=== PATIENT | male | born 1980 | race Caucasian/White ===

== ENCOUNTER 2019-07-25 08:54 | Emergency (ER) | payer SELFPAY ==
--- NOTE | ~2019-07-25 | XR_ITS ---
EXAMINATION: XR chest 1V portable 07/25/2019 09:20 INDICATION: Chest tightness PROCEDURE: AP portable chest COMPARISON: No prior studies for comparison. FINDINGS: The lungs are clear. The cardiomediastinal silhouette is within normal limits. There are no pleural effusions. There is no pneumothorax suspected. IMPRESSION: 1: NO ACUTE CARDIOPULMONARY DISEASE. Reviewed, dictated and finalized at location A.
[2019-07-25 09:00] VITALS: BP 141/85; PULSE 73; RESP 20; TEMP 37.1; O2SAT 100
[2019-07-25 09:02] VITALS: PULSE 73
--- NOTE | 2019-07-25 09:05 | ECG_ITS ---
Measurements Intervals [place] Rate: 79 P: 19 NM: 142 QRS: 35 QRSD: 86 T: 51 QT: 371 QTc: 426 Interpretive Statements SINUS RHYTHM BASELINE ARTIFACT- AVR, AVL, AVF, V1-V3 BORDERLINE ECG Electronically Signed On 07-26-2019 7:37:19 CDT by Nicolas Holliday D.O.
--- NOTE | 2019-07-25 09:11 | ED.CHESTPAIN ---
HPI - Chest Pain General Chief Complaint: Chest Pain Stated Complaint: Chest Pain Source: patient Mode of arrival: ambulatory Limitations: no limitations History of Present Illness HPI narrative: Upper midsternal chest tightness, onset 2 days ago, not going away. No Pain - does not give it a ranking. It's assoc. with burning in the left shoulder extending to the mid- forearm as well as burning extending from the left thigh to the mid calf, both rated 9/10. He has been feeling restless, had trouble sleeping, loss of appetite, intermittent nausea, burping and heartburn not relieved with Rolaids. He has no radiation into the neck or back. He denies diaphoresis, SOB. He attributes his symptoms to anxiety. He went to the of a friend similar age yesterday who about 3 weeks ago from a heart attack. Since his Jett has been experiencing these symptoms which got worses 2 days ago when he arrived at this home. He also attributes part of his symptoms to being at home and dealing with family members. He has had similar symptoms in the past with burning in his left arm just not as intense as today. This last occurred about 6 months ago. He was given shot lorazepam at the [facility] with resolution of his symptoms. He has no history of coronary artery disease, hyperlipidemia, diabetes, hypertension or obesity. There is no family history of the same. He is unaware of illnesses of his 3 siblings or his parents. Eating, taking a deep breath, movement, and activities do not affect his symptoms. He has a history of anxiety, PTSD, GERD and depression. He has felt more depressed since the of his friend. He has clonazepam 0.5 mg which he can take twice daily for anxiety; he has not taken it for more than a week - does not feel like it really helps. He has been on SSRIs, many different ones - they make him worse. He smokes way less than 1/2 ppd. Risk Factors Coronary artery disease risk factors: smoking history Related Data Home Medications Medication Instructions Recorded Confirmed No Home Medications 07/25/19 07/25/19 Allergies Allergy/AdvReac Type Severity Reaction Status Date / Time No Known Allergies Allergy Verified 07/25/19 09:23 Review of Systems Constitutional: Constitutional: Denies chills and Denies fever(s) Cardiovascular: Cardiovascular: Reports no additional cardiovascular complaints Respiratory: Respiratory: Denies cough, Denies dyspnea and Denies wheezing Gastrointestinal: Gastrointestinal: Denies abdominal pain and Denies diarrhea Musculoskeletal: Musculoskeletal: Reports no additional musculoskeletal complaints Integumentary/Breasts: Comments: No rash Neurologic: Denies headache(s) Psychiatric: Psychiatric: Reports no additional psychiatric complaints Hematologic/Lymphatic: Hematologic/Lymphatic: Denies easy bleeding PMFSH Past Medical History Medical History (Updated 07/25/19 @ 10:54 by Rohith Becker MD) Depression Generalized anxiety disorder GERD (gastroesophageal reflux disease) IBS (irritable bowel syndrome) PTSD (post-traumatic stress disorder) resulting in 70% disability Social History Social History (Updated 07/25/19 @ 10:55 by Rohith Becker MD) Social History: 80% disability. Lives in [place], [place]. 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 Smoking status: Current some day smoker Tobacco type: cigarettes Drinks per week: 4 Other substance usage details: denies marijuana and recreational drug use Exam Const: Orientation/consciousness: patient oriented x3 Neck: Neck: no lymphadenopathy Chest: Chest palpation & inspection: normal inspection of the chest and no tenderness Resp: Effort & Inspection: not labored, not tachypneic and no use of accessory muscles Auscultation: clear to auscultation bilaterally, no rales and no wheezes Cardio: Rate: regular rate and tachycardic Rhythm: regular rhythm GI: Inspection:
[2019-07-25 09:24] LABS: Hematocrit 46.2 % (40.0-54.0); Hemoglobin 15.7 g/dL (14.0-18.0); Mean Corpuscular Hemoglobin 31.4 pg (27.0-31.0); Mean Corpuscular Volume 92.4 fL (78.0-102.0); Mean Platelet Volume 10.1 fl (8.7-11.0); Platelet Count Result 181 K/mm3 (150-420); Red Cell Distribution Width 13.7 % (11.6-14.4); White Blood Count 3.7 K/mm3 (4.8-10.8)
[2019-07-25 09:40] LABS: Alanine Aminotransferase 22 U/L (16-63); Albumin Level 4.1 g/dL (3.4-5.0); Alkaline Phosphatase 60 U/L (46-116); Anion Gap 12.9 mmol/L (7-16); Aspartate Amino Transferase 27 U/L (15-37); Bilirubin,Total 0.6 mg/dL (0.00-1.00); Blood Urea Nitrogen 7 mg/dL (7-18); Calcium 8.8 mg/dL (8.5-10.1); Carbon Dioxide 31 mmol/L (21-32); Chloride 104 mmol/L (98-108); Estimated CRCL calculation 103 ml/min; Estimated Glomerular Filt Rate > 60; Glucose 92 mg/dL (70-99); Osmolality Calculated 296 mOsm/kg (285-295); Potassium 3.9 mmol/L (3.5-5.1); Sodium 144 mmol/L (136-145); Total Protein 7.5 g/dL (6.4-8.2)
[2019-07-25] MEDS: ASPIRIN 81 MG CHEWABLE TABLET 324 MG PO (09:45)
[2019-07-25 09:46] LABS: Troponin I < 0.02 ng/mL (0.00-0.056)
[2019-07-25 09:47] LABS: Band Neutrophils Percent 0 % (0-6); Basophils Percent Manual 0 % (0-1); Eosinophils Absolute Manual 0.14 K/mm3 (0.02-0.5); Eosinophils Percent Manual 4 % (1-6); Lymphocytes Absolute Manual 0.92 K/mm3 (1.1-4.5); Lymphocytes Percent Manual 25 % (18-44); Monocytes Absolute Manual 0.25 K/mm3 (0.1-0.90); Monocytes Percent Manual 7 % (3-9); Neutrophils Absolute Manual 2.36 K/mm3 (1.3-6.7); Neutrophils Percent Manual 64 % (46-73); Platelet Estimate Adequate (Adequate); Total Cells Counted 100
[2019-07-25] MEDS: LORAZEPAM INJ 2 MG/ML VIAL 1 MG IV PUSH (09:57)
--- NOTE | 2019-07-25 10:40 | PC.NURSE ---
report to guera denny
[2019-07-25] MEDS: PANTOPRAZOLE 40 MG TABLET PO (10:45)
[2019-07-25 10:46] VITALS: BP 140/94; PULSE 86; O2SAT 97
--- NOTE | 2019-07-26 13:49 | PCCCNOTE ---
[facility]
== END 2019-07-25 10:51 | disposition home or self-care (01) ==
PROVIDERS: Emergency Provider Family Medicine
DX: K21.9 Gastro-esophageal reflux disease without esophagitis (principal); K58.9 Irritable bowel syndrome, unspecified; F43.10 Post-traumatic stress disorder, unspecified; F32.9 Major depressive disorder, single episode, unspecified; F41.1 Generalized anxiety disorder; F17.210 Nicotine dependence, cigarettes, uncomplicated
CPT/HCPCS: 36415; 71045; 80053; 83735; 84484; 85025; 93005; 96374; 99284; A9270; J2060

== ENCOUNTER 2024-10-03 15:49 | Emergency (ER) | payer OTHER, SELFPAY ==
[2024-10-03] VITALS (11 sets, daily range): BP systolic 130–145; BP diastolic 88–104; PULSE 91–112; RESP 18–24; TEMP 36.4–37; O2SAT 92–98
--- NOTE | ~2024-10-03 | XR_ITS ---
EXAMINATION: XR chest 1V portable Exam Date/Time: 10/03/2024 16:30 CDT HISTORY: chest pain Comparison: None. RESULT: Lines, tubes, and devices: None. Lungs and pleura: Low volumes with crowding. Streaky subsegmental left basilar opacities. Cardiomediastinal silhouette: Stable. Other: No acute osseous or upper abdominal finding. IMPRESSION: Low volumes with crowding. Subsegmental left basilar atelectasis/consolidation. Reviewed, dictated and finalized at location K.
--- NOTE | 2024-10-03 15:50 | ECG_ITS ---
Test Date: 2024-10-03 15:55:26 Measurements Intervals [place] Rate: 110 P: 22 CA: 148 QRS: -2 QRSD: 86 T: 17 QT: 332 QTc: 450 Interpretive Statements SINUS TACHYCARDIA BASELINE WANDER- V3-V4 ABNORMAL ECG No previous ECG available for comparison Electronically Signed On 10-03-2024 17:41:22 CDT by Nicolas Holliday D.O.
--- OUTSIDE RECORDS SUMMARY | 2024-10-03 15:52 | XMS_ITS | Clinical Summary ---
Author Organization [facility] Address [address] [place] [address] Care Team Providers Care Truck Bracer Name Role Phone Unknown, Provider Primary Care Provider Unavaila ble Source Comments [facility],non-owned Affiliates and Associated Physician Practices is amultiple site organization consisting of ambulatory clinics and hospital sitesin [place], [place], [place] and [place]. This disclosure is being madepursuant to the Care Everywhere program and may not contain all information available regarding this patient. Last updated 17.[facility] Allergies No known active allergies Medications * Be aware that medications may not be up to date on this document. Alwaysverify current medications with the patient. alprostadil (Young Harris/Prostagla ndin E1) 500 MCG pellet INSERT 1 SUPPOSITORY INTO URETHRA EVERY WEEK NEEDED PRIOR TO SEXUAL ACTIVITY (MAX 6 DOSES/42 DAYS) 2 Active azelastine (Astelin) 0.1 % nasal spray 2 Active bisacodyl EC (Dulcolax) 5 MG tablet 2 (two) tablets 2 Active busPIRone (Buspar) 15 MG tablet 1 (one) tablet 2 Active cetirizine (ZyrTEC) 10 MG tablet 1 (one) tablet 2 Active famotidine (Pepcid) 40 MG tablet 1 (one) tablet 2 Active ketoconazole (Nizoral) 2 % shampoo USE SHAMPOO TO AFFECTED AREA(S) ONCE A DAY (EXTERNAL USE ONLY) (SHAKE WELL) 2 Active LORazepam (Ativan) 1 MG tablet Take 1 (one) tablet by mouth 2 times daily as needed 2 Active pantoprazole EC (Protonix) 40 MG tablet 1 (one) tablet 2 Active simethicone (Mylicon) 80 MG chew tablet 2 (two) tablets 2 Active Social History Tobacco Use Types Packs/Day Years Used Date Smoking Tobacco: Never Smokeless Tobacco: Current Chew Tobacco Cessation:Ready to Q uit: Not Asked; Counseling Given: Not Answered Alcohol Use Standard Drinks/Week Comments Yes 1 (1 standard drink = 0.6 oz pur e alcohol) Sex and Gender Information Value Date Recorded Sex Assigned at Not on file Legal Sex 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 Gender Identity Not on file Sexual Orientation Not on file Last Filed Vital Signs Vital Sign Reading Time Taken Comments Blood Pressure - - Pulse - - Temperature - - Respiratory Rate - - Oxygen Saturation - - Inhaled Oxygen Concentration - - Weight 104.3 kg (230 lb) 03/13/2022 8:06 AM SENIOR PRODUCT DEVELOPMENT SCIENTIST Height 177.8 cm (5' 10) 03/13/2022 8:06 AM SENIOR PRODUCT DEVELOPMENT SCIENTIST Body Mass Index 33 03/13/2022 8:06 AM SENIOR PRODUCT DEVELOPMENT SCIENTIST Plan of Treatment Health Maintenance Due Date Last Done Comments LIPID TESTING 1979 HIV SCREENING 09/26/1994 HEPATITIS C SCREENING 09/22/1997 DTAP/TDAP/TD VACCINES (1 - Tdap) 09/26/1998 HEPATITIS B VACCINE (1 of 3 - 19+ 3-dose series) 09/26/1998 HPV VACCINE (1 - 3-dose SCDM series) 09/26/2006 COVID-19 VACCINE ( season) 2023 DEPRESSION SCREENING 02/25/2024 INFLUENZA VACCINE (#1) 2024 9, 01/11/2015, 01/06/2013, Additional history exists ZOSTER VACCINE (1 of 2) 09/26/2029 HIB VACCINE Aged Out No longer eligi ble based on patient's age to complete this topic MENINGOCOCCAL (Group B) VACCINE SHARED DECISION-MAKING Aged Out No longer eligible based on patient's age to complete this topic MENINGOCOCCAL GROUPS A/C/Y/W VACCINE Aged Out No longer eligible based on patient's age to complete this topic PNEUMOCOCCAL VACCINE Aged Out No long er eligible based on patient's age to complete this topic Insurance [employer] Member Subscriber Plan / Payer ( fective 2008-Present) Name:Jett Hdz Relation to Subscriber:Self Name:Jett Hdz Payer ID:Not on file Group ID:Not on file Type:Con[employer] Access Address: [facility] [id number] [place] [id number] Care Teams Truck Bracer Relationship Specialty Start Date End Date Unknown, Provider PCP - General 03/13/22
--- OUTSIDE RECORDS SUMMARY | 2024-10-03 15:52 | XMS_ITS | Clinical Summary ---
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 Gender Identity Not on file Sexual Orientation Not on file Last Filed Vital Signs Vital Sign Reading Time Taken Comments Blood Pressure 168/105 06/27/2024 3:20 PM CDT Pulse 122 06/27/2024 3:20 PM CDT Temperature 36.6 C (97.8 F) 06/27/2024 3:20 PM CDT Respiratory Rate 16 06/27/2024 3:20 PM CDT Oxygen Saturation 99% 06/27/2024 3:20 PM CDT Inhaled Oxygen Concentration - - Weight - - Height - - Body Mass Index - - Plan of Treatment Health Maintenance Due Date Last Done Comments HPV VACCINES (1 - Male 3-dos e series) 09/26/1994 HEPATITIS B VACCINES (1 of 3 - 19+ 3-dose series) 09/26/1998 INFLUENZA VACCINE (#1) 2024 01/11/2015 COLORECTAL SCREENING 09/26/2024 Colorectal Cancer Screening 09/26/2024 FIT-DNA Q 3 years 09/26/2024 FIT/FOBT Q 1 year 09/26/2024 Flex Sig/CT Colonography Q 5 years 09/26/2024 DTAP/TDAP/TD VACCINES (8 - T d or Tdap) 08/22/2025 08/23/2015, 03/10/2005, 09/05/1993, Additional history exists Insurance [place] CCN [employer] Care Teams Tight Cooper Relationship Specialty Start Date End Date Ole Rivera DO PCP - General 02/08/15
--- NOTE | 2024-10-03 16:03 | ED_ITS ---
HPI - Anxiety General Chief Complaint: Anxiety Stated Complaint: chest pain Source: patient Mode of arrival: ambulatory Limitations: no limitations History of Present Illness HPI narrative: Patient is a 44-year-old male with generalized anxiety with his posttraumatic stress and currently going through a divorce. He said today is not a good day and he is having lots of anxiety and feels aggressive. No suicide or homicide ideation. He is having some chest pain/ burning sensation in the mid epigastric substernal area. No shortness of breath. In general, he feels tense all over causing his chest pain. patient goes to the [facility] for his medical care and they have him on many medicine for his anxiety. He did not take benzos today so far yet. complaint: anxiety Onset (ago): day(s) ( One) Symptoms: chest pain and extremity numbness/tingling Severity: moderate Quality: constant Place: home History of similar episodes: Yes Provoking factors: other ( divorce and his posttraumatic issues) Relieving factors: nothing Exacerbating factors: thinking about event Associated symptoms: chest pain Related Data Home Medications ?Medication ?Instructions ?Recorded ?Confirmed ?Last Taken ?Type No Home Medications 07/25/19 07/25/19 Unknown History Allergies Allergy/AdvReac Type Severity Reaction Status Date / Time No Known Allergies Allergy Verified 10/03/24 15:57 Review of Systems 2 Review of Systems: All systems reviewed & are unremarkable except as noted in HPI and below Constitutional: Constitutional: Reports no additional constitutional complaints Eyes: Eyes: Reports no additional eye complaints ENT: Reports system reviewed and no additional complaints, except as documented Cardiovascular: Cardiovascular: Reports no additional cardiovascular complaints Respiratory: Respiratory: Reports no additional respiratory complaints Gastrointestinal: Gastrointestinal: Reports no additional gastrointestinal complaints Genitourinary: Genitourinary: Reports no additional male genitourinary complaints Musculoskeletal: Musculoskeletal: Reports no additional musculoskeletal complaints Integumentary/Breasts: Skin/Breast: Reports system reviewed and no additional complaints, except as docu Neurologic: Reports system reviewed and no additional complaints, except as documented Psychiatric: Psychiatric: Reports no additional psychiatric complaints Endocrine: Endocrine: Reports no additional endocrine complaints Hematologic/Lymphatic: Hematologic/Lymphatic: Reports no additional hematologic/lymphatic complaints Allergic/Immunologic: Allergic/Immunologic: Reports no additional allergic/immunologic complaints PMFSH Past Medical History Medical History PTSD (post-traumatic stress disorder) resulting in 70% disability IBS (irritable bowel syndrome) Depression Generalized anxiety disorder GERD (gastroesophageal reflux disease) Social History Social History Social History: 80% disability. Lives in [place], [place]. 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 Smoking status: Current some day smoker Tobacco type: cigarettes Drinks per week: 4 Other substance usage details: denies marijuana and recreational drug use Exam 2 Const: General: healthy appearing Nutritional Appearance: well nourished Orientation/consciousness: patient oriented x3 Limitations: other limitations ( Current situation) Other: patient is anxious and tense on walking into the room HENMT: Head: normal to inspection Ears: external ears normal F rosi/Nose/Sinus: Normal external nose present Eyes: Conjunctivae: conjunctivae normal Pupils: Equal, round and reactive pupils present EOM: EOMs intact bilaterally Neck: Neck: normal visual inspection Chest: Chest palpation & inspection: normal inspection of the chest Resp: Effort & Inspection: normal respiratory effort and not labored A uscultation: clear to auscultation bilaterally and no crackles Cardio: Rate: regular rate Rhythm: regular rhythm Heart sounds: no murmurs GI: Inspection: non-distended GI Palp: Yes Soft to palpation and No Tenderness to palpation present (GI) Auscultation: normal bowel sounds : General: Yes bladder normal to palpation Back/Spine/Pelvis: Back: no CVA tenderness Skin: General skin exam: normal color Rashes: no rashes Wounds: no wounds Neuro: General: patient oriented x3, moves all extremities, no meningeal signs, no focal motor deficits and CN's II-XI intact bilaterally Cranial nerves: Yes Nystagmus not present Speech: normal speech Gait exam (Neuro): Normal gait present Extrem: General: normal to inspection Psych: Mental Status: mental status grossly normal Affect: Sad affect present and Anxious affect present Attitude: cooperative Other: no active suicide or homicide ideation or thoughts; no hallucinations or delusions Course Vital Signs Vital signs: Vital Signs Temperature 37.0 C 10/03/24 15:49 Pulse Rate 110 H 10/03/24 15:49 Respiratory Rate 21 H 10/03/24 15:49 Blood Pressure 144/104 H 10/03/24 15:49 Pulse Oximetry 97 10/03/24 15:49 Oxygen Delivery Room Air 10/03/24 15:49 Temperature 37.0 C 10/03/24 15:49 Pulse Rate 101 H 10/03/24 16:46 Respiratory Rate 18 10/03/24 16:46 Blood Pressure 130/93 H 10/03/24 16:46 Pulse Oximetry 97 10/03/24 16:46 Oxygen Delivery Room Air 10/03/24 15:49 MDM - Anxiety MDM Narrative Medical decision making narrative: patient is a 44-year-old male with chest pain and chest burning/tightness for the past day. He said this feels like any other of his panic attacks. we will do a cardiac workup and give [facility] IM. Patient feels better and like to be discharged at this time. Own thing pending is the final reading on the chest x- ray and there is no major changes at this time seen. Final reading will be in the next 30 minutes. Lab Data Attestation: I reviewed the patient's lab results. 10/03/24 16:26 10/03/24 16:26 Labs: Lab Results 10/03/24 Range/Units 16:26 WBC 5.2 (4.8-10.8) K/mm3 RBC 4.86 (4.70-6.10) M/mm3 Hgb 14.9 (14.0-18.0) g/dL Hct 43.7 (40.0-54.0) % MCV 89.9 (78.0-102.0) fL MCH 30.7 (27.0-31.0) pg MCHC 34.1 (32-36) g/dL RDW 13.8 (11.6-14.4) % Plt Count 264 (150-420) K/mm3 MPV 9.8 (8.7-11.0) fl Immature Gran % (Auto) 0.4 H (0.0-0.0) % Neut % (Auto) 57.4 (50.0-70.0) % Lymph % (Auto) 31.6 (18.0-42.0) % Worth % (Auto) 7.8 (2.0-11.0) % Eos % (Auto) 1.4 (1.0-6.0) % Baso % (Auto) 1.4 H (0.0-1.0) % Lymph # (Auto) 1.63 (1.10-4.50) K/mm3 Worth # (Auto) 0.40 (0.10-0.90) K/mm3 Eos # (Auto) 0.07 (0.02-0.50) K/mm3 Baso # (Auto) 0.07 (0.00-0.10) K/mm3 Abs Immat Gran (auto) 0.02 H (0.00-0.00) K/mm3 Absolute Neuts (auto) 2.97 (1.70-7.20) K/mm3 Absolute Nucleated RBC 0.00 (0.00-0.00) K/mm3 Nucleated RBC % 0.0 (0-0.0) % Sodium 148 H (137-145) mmol/L Potassium 3.8 (3.4-5.0) mmol/L Chloride 111 H (98-107) mmol/L Carbon Dioxide 26 (22-30) mmol/L Anion Gap 11 (4-12) mmol/L BUN 11 (9-20) mg/dL Creatinine 1.00 (0.7-1.3) mg/dL Estim Creat Clear Calc 97 ml/min Estimated GFR > 60 (59 - ) Glucose 107 (65-110) mg/dL Calculated Osmolality 305 H (285-295) mOsm/kg Calcium 8.9 (8.4-10.2) mg/dL Total Bilirubin 0.8 (0.2-1.3) mg/dL AST 32 (17-59) U/L ALT 18 (6-50) U/L Alkaline Phosphatase 45 (38-126) U/L Troponin I < 0.012 (0.000-0.034) ng/mL Total Protein 7.1 (6.3-8.2) g/dL Albumin 4.3 (3.5-5.1) g/dL Imaging Data Attestation: I personally reviewed and interpreted this imaging study as follows: My impression: Chest x-ray preliminary reading by me was likely no acute process (questionable right lower lobe infiltrate could be present but likely not; await final reading) ECG Data EKG #1: Attestation: I personally reviewed and interpreted this ECG as follows: ECG completion date: 10/03/24 ECG completion time: 16:23 EKG Interpretation: tachycardia, sinus rhythm, no ectopy, PVCs, no ST changes, normal QRS, normal QT and left axis Discharge Plan Discharge Clinical Impression: Acute reaction to stress Patient Disposition: Home Condition: Stable Instructions: Anxiety (ED) Patient Language: Tamazight Prescriptions: No Action No Home Medications Follow-up/Referrals: [facility],KELVIN [Primary Care Provider] - Time of Disposition: 17:29
[2024-10-03] MEDS: LORazepam INJ (*CRX) 2 MG/ML VIAL 1 MG IM (16:24)
[2024-10-03 16:31] LABS: Hematocrit 43.7 % (40.0-54.0); Hemoglobin 14.9 g/dL (14.0-18.0); Immature Granulocyte Percent A 0.4 % (0.0-0.0); Lymphocytes Absolute Auto 1.63 K/mm3 (1.10-4.50); Mean Corpuscular HGB Conc 34.1 g/dL (32-36); Mean Corpuscular Hemoglobin 30.7 pg (27.0-31.0); Mean Corpuscular Volume 89.9 fL (78.0-102.0); Nucleated Red Blood Cells Absolute Auto 0.00 K/mm3 (0.00-0.00); Nucleated Red Blood Cells Perc 0.0 % (0-0.0); Platelet Count Result 264 K/mm3 (150-420); Red Blood Count 4.86 M/mm3 (4.70-6.10); White Blood Count 5.2 K/mm3 (4.8-10.8)
--- OUTSIDE RECORDS SUMMARY | 2024-10-03 16:37 | XMS_ITS | Clinical Summary ---
Author Organization [facility] Address [address] [place] [address] Care Team Providers Care Stitch Bonding Machine Operator Name Role Phone Unknown, Provider Primary Care Provider Unavaila ble Source Comments [facility],non-owned Affiliates and Associated Physician Practices is amultiple site organization consisting of ambulatory clinics and hospital sitesin [place], [place], [place] and [place]. This disclosure is being madepursuant to the Care Everywhere program and may not contain all information available regarding this patient. Last updated 17.[facility] Allergies No known active allergies Medications * Be aware that medications may not be up to date on this document. Alwaysverify current medications with the patient. alprostadil ([place]/Prostagla ndin E1) 500 MCG pellet INSERT 1 [...] on file Legal Sex Male 2:01 PM POLE CLASSIFIER Gender Identity Not on file Sexual Orientation Not on file Last Filed Vital Signs Vital Sign Reading Time Taken Comments Blood Pressure - - Pulse - - Temperature - - Respiratory Rate - - Oxygen Saturation - - Inhaled Oxygen Concentration - - Weight 104.3 kg (230 lb) 03/13/2022 8:06 AM POLE CLASSIFIER Height 177.8 cm (5' 10) 03/13/2022 8:06 AM POLE CLASSIFIER Body Mass Index 33 03/13/2022 8:06 AM POLE CLASSIFIER Plan of Treatment Health Maintenance Due Date [...] patient's age to complete this topic Insurance [employer] Member Subscriber Plan / Payer ( fective 2008-Present) Name:Jett Hdz Relation to Subscriber:Self Name:Jett Hdz Payer ID:Not on file Group ID:Not on file Type:[employer] Address: [facility] [id number] [place] [id number] Care Teams Stitch Bonding Machine Operator Relationship Specialty Start Date End Date Unknown, Provider PCP - General 03/13/22
--- OUTSIDE RECORDS SUMMARY | 2024-10-03 16:37 | XMS_ITS | Clinical Summary ---
Author Organization [facility] Address [address] [place] [address] Phone Care Team Providers Care Technical Marketing Engineer Name Role Phone Ole Rivera DO Primary Care Provider + Allergies No known active allergies Social History Tobacco Use Types Packs/Day Years Used Date Smoking Tobacco: Never Assessed Sex and Gender Information Value Date Recorded Sex Assigned at Not on file Legal Sex Male 9:00 AM PSYCHIATRIC TECHNICIAN ASSISTANT Gender Identity Not on file Sexual Orientation [...] 08/23/2015, 03/10/2005, 09/05/1993, Additional history exists Insurance [place] CCN [employer] Care Teams Technical Marketing Engineer Relationship Specialty Start Date End Date Ole Rivera DO PCP - General 02/08/15
[2024-10-03 16:41] LABS: Alanine Aminotransferase 18 U/L (6-50); Albumin Level 4.3 g/dL (3.5-5.1); Alkaline Phosphatase 45 U/L (38-126); Anion Gap 11 mmol/L (4-12); Aspartate Amino Transferase 32 U/L (17-59); Bilirubin,Total 0.8 mg/dL (0.2-1.3); Blood Urea Nitrogen 11 mg/dL (9-20); Calcium 8.9 mg/dL (8.4-10.2); Carbon Dioxide 26 mmol/L (22-30); Chloride 111 mmol/L (98-107); Estimated CRCL calculation 97 ml/min; Estimated Glomerular Filt Rate > 60; Glucose 107 mg/dL (65-110); Osmolality Calculated 305 mOsm/kg (285-295); Potassium 3.8 mmol/L (3.4-5.0); Sodium 148 mmol/L (137-145); Total Protein 7.1 g/dL (6.3-8.2)
[2024-10-03 16:53] LABS: Troponin I < 0.012 ng/mL (0.000-0.034)
== END 2024-10-03 17:33 | disposition home or self-care (01) ==
PROVIDERS: Emergency Provider Emergency Medicine
DX: F43.0 Acute stress reaction (principal); F17.210 Nicotine dependence, cigarettes, uncomplicated
CPT/HCPCS: 36415; 71045; 80053; 84484; 85025; 93005; 96372; 99284; J2060